=== PATIENT | female | born 1990 | race Caucasian/White ===

== ENCOUNTER 2018-01-09 19:31 | Emergency (ER) | payer BC ==
[2018-01-09 19:31] VITALS: BMI 21.2
[2018-01-09 19:42] VITALS: RESP 18; O2SAT 99
[2018-01-09] MEDS ORDERED: Lidocaine 5% Patch TD STA (19:51)
[2018-01-09] MEDS ORDERED: Lidocaine 5% Patch TD ONE (20:09)
--- NOTE | 2018-01-09 20:50 | C.PDOC ---
History Of Present Illness 27 year old female who is 5 weeks presents to the ED complaining of back pain. She reports she was picking up something off the floor when she felt like she "pulled a back muscle" [employer] SOLUTION ARCHITECT. She denies any new weakness, numbness, or tingling. Time Seen by Provider: 01/09/18 19:44 Chief Complaint (Nursing): Back Pain History Per: Patient History/Exam Limitations: no limitations Onset/Duration Of Symptoms: Hrs Current Symptoms Are (Timing): Still Present Quality Of Discomfort: "Pain" Associated Symptoms: None Past Medical History Reviewed: Historical Data, Nursing Documentation, Vital Signs Vital Signs: Last Vital Signs Temp 98.9 F 01/09/18 19:38 Pulse 99 H 01/09/18 19:38 Resp 18 01/09/18 19:38 BP 138/97 H 01/09/18 19:38 Pulse Ox 99 01/09/18 19:38 - Medical History PMH: No Chronic Diseases Denies: Chronic Kidney Disease Other Surgeries: hx of surgeries Family History: States: No Known Family Hx - Social History Hx Tobacco Use: Yes Hx Alcohol Use: Yes Hx Substance Use: No - Immunization History Hx Tetanus Toxoid Vaccination: No Hx Influenza Vaccination: No Hx Pneumococcal Vaccination: No Review Of Systems Except As Marked, All Systems Reviewed And Found Negative. Musculoskeletal: Positive for: Back Pain Neurological: Negative for: Weakness, Numbness Physical Exam - Physical Exam Appears: Non-toxic Skin: Warm, Dry Head: Normacephalic Eye(s): bilateral: Normal Inspection Nose: Normal Oral Mucosa: Moist Neck: Normal ROM Chest: Symmetrical Cardiovascular: Rhythm Regular Respiratory: Normal Breath Sounds Gastrointestinal/Abdominal: Soft, No Tenderness Back: No CVA Tenderness, No Decreased ROM, Other (tenderness to right sided back ) Neurological/Psych: Oriented x3, Normal Speech, Normal Motor, Normal Sensation, Normal Reflexes Gait: Steady ED Course And Treatment O2 Sat by Pulse Oximetry: 99 (RA) Pulse Ox Interpretation: Normal Progress Note: Patient treated with Tylenol and given Lidoderm patch. On reassessment, patient reports mild improvement. Patient instructed to follow up with PMD / OBGYN within 1-2 days. Advised to return to ED if symptoms persist or worsen. Disposition - Disposition Referrals: Non [facility] Provider, [Primary Care Provider] - Disposition: HOME/ ROUTINE Disposition Time: 20:47 Condition: STABLE Additional Instructions: Follow up with PMD / OBGYN within 1-2 days. Return to ED if feel worse. 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 - Scribe Statement The provider has reviewed the documentation as recorded by the Scribmiroslava Martinez All medical record entries made by the Behzad were at my direction and personally dictated by me. I have reviewed the chart and agree that the record accurately reflects my personal performance of the history, physical exam, medical decision making, and the department course for this patient. I have also personally directed, reviewed, and agree with the discharge instructions and disposition.
[2018-01-09 21:00] VITALS: BP 131/89; PULSE 93; TEMP 98.8
== END 2018-01-09 21:01 | disposition home or self-care (01) ==
LOC: SUPCPDRO 19:31 → C.ER 19:31
DX: S39.012A Strain of muscle, fascia and tendon of lower back, initial encounter (principal); X58.XXXA Exposure to other specified factors, initial encounter